=== PATIENT | female | born 1980 | race Caucasian/White ===

== ENCOUNTER 2025-03-21 20:16 | Observation (INO) ==
--- NOTE | 2025-03-21 20:34 | Emergency Department Note ---
Impression & Plan Lumbar disc herniation, Degenerative disc disease at L5-S1 level ED Provider Note CHIEF COMPLAINT: Injury, severe lower back pain HISTORY OF PRESENTING ILLNESS: The patient is a 44-year-old female who reports to the emergency department stating that 5 days ago she "popped something in her back". She was evaluated initially at [place] emergency department twice where she was told that she "blew a disc". She is now having worsening pain and is unable to see the specialist until Sunday, 4 days from now. Pain is worse with lying down and with moving from a seated to standing position. She notes that when this originally happened she had complete weakness and numbness in the left lower extremity which has mildly improved. She is sitting uncomfortably and has not been able to sleep for the past couple of days. She denies numbness and tingling of her groin, loss of bowel or bladder, urinary symptoms, abdominal pain, fever, chest pain, shortness of breath, as well as trauma or injury. REVIEW OF SYSTEMS: See HPI for pertinent positives and pertinent negatives. ALLERGIES: Prednisone, tramadol MEDICATIONS: See below PAST MEDICAL HISTORY: See below PHYSICAL EXAM: VITALS: Vitals are noted on the nurses note and reviewed by myself. Vital signs stable. GENERAL: 44-year-old female, sitting uncomfortably hunched over and leaned forward in a chair, in no acute distress, nondiaphoretic, well-developed well- nourished. SKIN: Capillary refill less than 2 seconds. HEENT: Normocephalic. PERRLA. EOMI. Nares patent. Mucous membranes moist. Neck is supple. HEART: Regular rate and rhythm without murmurs gallops or rubs. LUNGS: CTA BL without wheezes, rales or rhonchi. No retractions or accessory muscle use. ABDOMEN: Soft, nontender, without masses or organomegaly. No guarding or rebound tenderness. MUSCULOSKELETAL: Tenderness upon palpation to the left paraspinal muscles in the left buttock area. No tenderness upon palpation to the cervical, thoracic, and lumbar spinous process. No deformity or step-off. Left straight leg raise positive. 3/5 left lower extremity strength secondary to discomfort. No tremors, tics, or fasciculations. Patient moves through positions when asked but slowly. No pain on the right side. NEURO: Patient was alert and oriented. Normal sensation on exam. No focal neurological deficits. DIFFERENTIAL DIAGNOSIS: cauda equina syndrome, cord compression, disc herniation, muscle spasm, lumbar strain, epidural abscess, malignancy, transverse myelitis, urinary tract infection, colitis, diverticulitis, kidney stone, among others. ED COURSE AND MEDICAL DECISION MAKING: HISTORY FROM INDEPENDENT HISTORIAN: The patient herself. MEDICATIONS GIVEN: Oxycodone 5 mg PO, Tylenol 1000 mg PO, morphine 4 mg IV, Zofran 4 mg IV, Toradol 15 mg IV INTERPRETATION OF LABS: I interpreted the labs with full lab results as below in the lab section of this note. Pertinent lab results discussed in the MDM section below. INTERPRETATION OF IMAGING: Imaging studies were interpreted by myself and read by radiology as per the imaging section of this note. CT lumbar spine - Posterior disc herniation measuring 3 to 4 mm narrowing of the thecal sac to 8 mm. Mild degenerative disc disease at L5-S1 as described above. No acute fracture or subluxation. CONSULTATIONS: On-call [facility] - Presented the patient to the provider and discussed imaging results. They agreed to evaluating the patient for pain management. MDM SUMMARY: I evaluated the 45-year-old female who presents the emergency department due to low back pain radiating into the left leg. See HPI and physical exam above. Initially oxycodone and Tylenol were given. Patient's vitals are stable. She is sitting very uncomfortably in the chair. Leukocytosis WBC of 15.49 which may be secondary to pain. Hemodynamically stable. No electrolyte abnormality. No FRANK. All lab results reviewed with the patient. Additionally morphine and Zofran were given for symptom management. CT lumbar spine shows a posterior disc herniation measuring 3 to 4 mm as well as DDG at L5-S1. On reevaluation of the patient she confirms that she is feeling slightly better but she is still bent over and uncomfortable. She is able to ambulate but with extreme discomfort. I had a long discussion with her regarding continuing her steroid, muscle relaxer, and pain management until she is evaluated by the specialist on Sunday or needing additional pain management. She requests additional pain management. Toradol was given and a consultation was placed with the on-call [facility]. The patient was admitted to medicine in stable condition. She is agreeable and all questions answered. DIAGNOSIS: Lumbar disc herniation, degenerative disc disease at L5-S1 The chart was completed utilizing [employer] Speech voice recognition software. Grammatical errors, random word insertions, pronoun errors, and incomplete sentences are an occasional consequence of this system due to software limitations, ambient noise, and hardware issues. Any formal questions or concerns about the content, text, or information contained within the body of this dictation should be directly addressed to the provider for clarification. 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 Beliefs That Will Affect Care: None Current Living Situation: Family Other Information That Helps Us Care for You: No Feels Safe at Home: No Is there a partner from a previous relationship who is making you feel unsafe now?: No Any Concerns about Your Family Situation: No Would You Like to Speak to Someone About Your Situation: No Safety Concerns: Feels Safe At This Time Assistive Devices: None Allergies Allergies Allergy/AdvReac Type Severity Reaction Status Date / Time prednisone Allergy Severe FACE Verified 03/22/25 00:31 SWELLS/VOMITING/STOMACH BLEEDS tramadol AdvReac Intermediate VOMITING/CAUSED Verified 03/22/25 00:31 A MIGRAINE Home Meds Home Medications Medication Instructions Recorded Confirmed Primal Carney Suppliment 1 tab PO DAILY 03/22/25 03/22/25 acetaminophen 500 mg tablet 1,000 mg PO Q6H PRN Pain 03/22/25 03/22/25 (Tylenol Extra Strength) ergocalciferol (vitamin D2) 1,250 1,250 mcg PO WK 03/22/25 03/22/25 mcg (50,000 unit) capsule (Vitamin D2) methylprednisolone 4 mg tablets in 4 mg PO DIRECTED 09/14/25 09/14/25 a dose pack tizanidine 2 mg tablet 2 mg PO Q8H PRN MUSCLE SPASMS 03/22/25 03/22/25 Results & Data (ED) Vital Signs Vital Signs - 24 hr 03/22/25 01:00 03/22/25 01:00 Temperature 36.6 C Temperature Source Oral Pulse Rate [Left Finger] 80 Respiratory Rate 14 Respiratory Effort / Characteristics Non-Labored Spontaneous Respiratory Depth Normal Respiratory Pattern Regular Blood Pressure [Left Arm] 152/92 H Blood Pressure Mean [Left Arm] 112 Pulse Oximetry 95 Oxygen Delivery Method Room Air EWS Level of Consciousness - Last Result Spontaneously Alert EWS Temperature - Last Result 36.5 EWS Respiratory Rate - Last Result 18 EWS Oxygen Saturation - Last Result 98 EWS Score 0 EWS Clinical Risk Low Risk Laboratory Data 03/21/25 21:20 03/21/25 21:20 Lab Results 03/21/25 Range/Units 21:20 WBC 15.49 H (4.8-10.8) K/ul RBC 4.40 (4.20-5.40) M/uL Hgb 12.1 (12.0-16.0) g/dl Hct 36.5 L (37.0-47.0) % MCV 83.0 (80.0-100.0) fL MCH 27.5 (25.0-34.0) pg MCHC 33.2 (32.0-36.0) g/dL RDW Std Deviation 36.7 (36.4-46.3) fL RDW Coeff of David 12.0 (11.5-14.5) % Plt Count 392 (130-400) K/uL MPV 9.1 L (9.4-12.4) fL Immature Gran % (Auto) 0.5 % Neut % (Auto) 78.3 % Lymph % (Auto) 15.8 % Mccormick % (Auto) 4.8 % Eos % (Auto) 0.3 % Baso % (Auto) 0.3 % Neut # (Auto) 12.14 H (1.40-6.50) K/uL Lymph # (Auto) 2.44 (1.20-3.40) K/uL Mccormick # (Auto) 0.75 H (0.11-0.59) K/uL Eos # (Auto) 0.04 (0.00-0.50) K/uL Baso # (Auto) 0.05 (0.00-0.20) K/uL Immature Gran # (Auto) 0.07 (0.01-0.20) K/uL Sodium 136 (136-145) mmol/L Potassium 4.0 (3.5-5.1) mmol/L Chloride 104 (98-107) mmol/L Carbon Dioxide 25 (21-32) mmol/L Anion Gap 7 (3-11) BUN 14 (6-23) mg/dl Creatinine 0.71 (0.6-1.2) mg/dl Est Cr Clr Drug Dosing 137.1 ml/min eGFR 108.80 BUN/Creatinine Ratio 19.7 (10-20) Glucose 113 H (70-99(Fasting)) mg/dl Calcium 9.4 (8.6-10.3) mg/dl Total Bilirubin 0.2 (0.2-1.0) mg/dl AST 8 L (13-39) U/L ALT 8 (7-52) U/L Alkaline Phosphatase 62 (34-104) U/L Total Protein 8.1 (6.0-8.3) gm/dl Albumin 4.5 (3.4-5.0) gm/dl Globulin 3.6 (2.5-4.0) gm/dl Albumin/Globulin Ratio 1.3 (0.9-2) Administered Medications Discontinued Medications Acetaminophen (Acetaminophen 500 Mg Tab) 1,000 mg PO NOW STA Stop: 03/21/25 21:27 Last Admin: 03/21/25 21:35 Dose: 1,000 mg Documented By: JOSE DAVID Acetaminophen (Acetaminophen 500 Mg Tab) 1,000 mg PO Q8H TERRENCE Stop: 04/21/25 05:59 Last Admin: 03/22/25 05:20 Dose: 1,000 mg Documented By: [id number] Baclofen (Baclofen 10 Mg Tab) 10 mg PO ONE ONE Stop: 03/22/25 09:34 Last Admin: 03/22/25 09:53 Dose: 10 mg Documented By: ADB Dexamethasone (Dexamethasone Sod Inj 4 Mg/Ml Vial) 10 mg IV NOW STA Stop: 03/22/25 01:49 Last Admin: 03/22/25 02:37 Dose: 10 mg Documented By: LAF Diclofenac Sodium (Diclofenac Sod 1% Gel 100 Gm Tube) 2 gm EXT QID TERRENCE; Protocol Stop: 04/21/25 08:59 Last Admin: 03/22/25 09:08 Dose: 2 gm Documented By: MILADYS Lactated Ringer's (Lr) 1,000 mls @ 150 mls/hr IV .Q6H40M TERRENCE Stop: 03/22/25 11:30 Last Infusion: 03/22/25 09:55 Dose: Infused Documented By: Admin: 03/22/25 05:21 Dose: 150 mls/hr Documented By: [id number] Ketorolac Tromethamine (Ketorolac Tromethamine 15 Mg/Ml Vial) 15 mg IV NOW STA Stop: 03/22/25 00:47 Last Admin: 03/22/25 00:52 Dose: 15 mg Documented By: mercy Ketorolac Tromethamine (Ketorolac 30 Mg/Ml Vial) 30 mg IV NOW ONE Stop: 03/22/25 09:33 Last Admin: 03/22/25 09:51 Dose: 30 mg Documented By: MILADYS Morphine Sulfate (Morphine Sulfate 4 Mg/Ml 1 Ml Carp\\Vial) 4 mg IV NOW STA Stop: 03/21/25 22:34 Last Admin: 03/21/25 23:12 Dose: 4 mg Documented By: EPHRAIM Ondansetron HCl (Ondansetron Inj 2 Mg/Ml 2 Ml Vial) 4 mg IV NOW STA Stop: 03/21/25 22:34 Last Admin: 03/21/25 23:12 Dose: 4 mg Documented By: EPHRAIM Oxycodone HCl (Oxycodone Hcl Ir 5 Mg Tab (Immediate Release)) 5 mg PO NOW STA Stop: 03/21/25 21:27 Last Admin: 03/21/25 21:35 Dose: 5 mg Documented By: JOSE DAVID Pantoprazole Sodium (Pantoprazole 40 Mg Tab) 40 mg PO QAM TERRENCE Stop: 04/21/25 08:59 Last Admin: 03/22/25 09:09 Dose: 40 mg Documented By: MILADYS Tramadol HCl (Tramadol Hcl 50 Mg Tablet) 50 mg PO NOW STA Stop: 03/22/25 09:33 Last Admin: 03/22/25 09:52 Dose: Not Given Documented By: MILADYS Discharge Plan Visit Data Chief Complaint: Back Injury/Pain Stated Complaint: INJURY, INTENSE LOWER BACK PAIN ED Provider: Dax Moran ED Midlevel Provider: Keshia Orona Discharge Problem: Lumbar disc herniation, Degenerative disc disease at L5-S1 level Patient Disposition: Admitted As Inpatient Condition: Good Discharge Instructions Interventions: ED Discharge Assessment Last Done: 03/22/25 04:36
[2025-03-21] MEDS: ACETAMINOPHEN 500 MG TAB PO STA (21:35)
[2025-03-21 21:40] LABS: Hematocrit (blood only) 36.5 % (37.0-47.0); Hemoglobin 12.1 g/dl (12.0-16.0); Immature Granulocytes # (auto) 0.07 K/uL (0.01-0.20); Immature Granulocytes % (auto) 0.5 %; Mean Corpuscular Hemoglobin 27.5 pg (25.0-34.0); Mean Corpuscular Volume 83.0 fL (80.0-100.0); Platelet Count 392 K/uL (130-400); RDW Standard Deviation 36.7 fL (36.4-46.3); Red Blood Count 4.40 M/uL (4.20-5.40); White Blood Count 15.49 K/ul (4.8-10.8)
[2025-03-21 21:58] LABS: Alanine Aminotransferase 8.0 U/L (7-52); Albumin Globulin Ratio 1.3 (0.9-2); Alkaline Phosphatase 62.0 U/L (34-104); Anion Gap 7.0 (3-11); Bilirubin,Total 0.2 mg/dl (0.2-1.0); Blood Urea Nitrogen 14.0 mg/dl (6-23); Calcium 9.4 mg/dl (8.6-10.3); Carbon Dioxide 25.0 mmol/L (21-32); Chloride 104.0 mmol/L (98-107); Creatinine Clr Calc Pharmacy 137.1 ml/min; Globulin 3.6 gm/dl (2.5-4.0); Glucose 113.0 mg/dl (70-99(Fasting)); Potassium 4.0 mmol/L (3.5-5.1); Sodium 136.0 mmol/L (136-145); Total Protein 8.1 gm/dl (6.0-8.3)
--- NOTE | 2025-03-21 22:27 | CT Scan Report ---
Exam(s): CT L SPINE EXAM: CT Lumbar Spine Without Intravenous Contrast CLINICAL HISTORY: Reason for exam: back pain, left leg sciatica. TECHNIQUE: Axial computed tomography images of the lumbar spine without intravenous contrast. CTDI is 39 mGy and DLP is 1129 mGy-cm. Automated exposure control was utilized for the study. A dose lowering technique was utilized adhering to the principles of ALARA. COMPARISON: No relevant prior studies available. FINDINGS: Vertebrae: Unremarkable. No acute fracture. Soft tissues: Unremarkable. DISCS/SPINAL CANAL/NEURAL FORAMINA: L1-L2: Unremarkable. No significant disc disease. No stenosis. L2-L3: Unremarkable. No significant disc disease. No stenosis. L3-L4: Unremarkable. No significant disc disease. No stenosis. L4-L5: Unremarkable. No significant disc disease. No stenosis. L5-S1: Mild degenerative disc space narrowing and anterior osteophyte formation. There is posterior disc herniation measuring 3-4 mm narrowing of the thecal sac to 8 mm. The neural foramina are widely patent bilaterally. IMPRESSION: Mild degenerative disc disease at L5-S1 as described above. No acute fracture or subluxation is seen. Electronically signed by: Dax Lubin MD 03/21/25 22:26 PM
[2025-03-21] MEDS: MoRPHine SULFATE 4 MG/ML 1 ML CARP\\VIAL IV STA (23:12)
[2025-03-21] MEDS: ONDANSETRON INJ 2 MG/ML 2 ML VIAL IV STA (23:12)
[2025-03-22] MEDS: KETOROLAC TROMETHAMINE 15 MG/ML VIAL IV STA (00:52)
--- NOTE | 2025-03-22 01:38 | History & Physical Report ---
Date of Service March 22, 2025 Assessment & Plan (1) Lower back pain: (2) Myofascial low back pain: (3) Lumbar disc herniation: (4) Degenerative disc disease at L5-S1 level: (5) Leukocytosis: Plan Patient is a 45-year-old female with no significant medical history who was admitted for pain management. #Lower back pain #Myofascial pain #Posterior disc herniation and mild degenerative changes at the level of L5-S1 Possible that because of lower back pain is multifactorial, and may include myofascial pain since it was reproducible on palpation and improves with spinal extension, plus or minus some contribution from possible radiculopathy consequent of noted posterior disc herniation Suspect that noted elevations in blood pressure may also be related to pain (no history of hypertension) Will admit to MedSurg for pain management Pain control with scheduled Tylenol, Toradol 15 mg IV for breakthrough pain, heat application, and Voltaren gel Patient scheduled to see mobility specialist on Sunday this week; suspect may need to continue with anti-inflammatory medication and 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 labs Dispo: Admit to Med/Surg Fluids: LR @ 150 ml/hr x1 bag Diet: Regular VTE ppx: low risk; ambulation GI ppx: Protonix Code Status: FULL History of Present Illness Chief Complaint: Back pain Primary Care Provider: Wilian Simms DO Patient is a 45-year-old female with no significant medical history who came to the emergency department due to severe lower back pain. 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 Since then, the tingling and numbness improved, and so patient went to work, but after pain persisted for 8-9 hours, patient went to hospital in [place] for evaluation. There, she had an XR done which showed no fractures or acute changes, and was then discharged with oxycodone for pain control. No steroids given at this time due to concern of hx of allergic reaction to Prednisone where she developed facial swelling and "bleeding into her stomach". At home, she tried using the oxycodone, but was still not able to achieve pain control, therefore she returned to [facility]. There, they repeated l-spine XR and again was told there were no new changes and was discharged with Medrol dose pack and the remaining prescription for oxycodone from her previous visit. After this, she set up an appointment with a mobility specialist scheduled for Sunday of this week. Since she felt the pain was worse and has not been able to sleep due to pain being exacerbated with laying flat or sitting for a long time, she came to this ED. Other exacerbating factors patient can recall is bending over or sitting up from a laying position. No alleviating factors. Does occasionally feel the shooting sensation down her leg when she bends over, but this is not always. Pain is localized in lower back. Denies LE weakness, urinary incontinence, saddle anesthesia, sensorial changes, or other associated sxs. No hx of preceding trauma, no surgeries, no falls, no fevers. ED Course: Given Tylenol 1 gm x1, Toradol 15 mg x1, Morphine 4 mg x1, Oxycodone 5 mg x1, and Zofran 4 mg x1, Decadron 10 mg IV x1 Labs/Imaging: CBC with slight leukocytosis of 15.5 with neutrophilic predominance, hemoglobin 12.1, platelets of 392. CMP without significant electrolyte abnormalities, creatinine of 0.71, blood sugar 113. LFTs unremarkable. L-spine CT showing degenerative changes at the level of L5-S1 that is mild with narrowing of the thecal sac to 8 mm due to posterior disc herniation at this level. Medical History: [Reviewed] Medications: [Reviewed] Surgical History: [Reviewed] Family history: [Reviewed] Allergies: [Reviewed] Social History: [Reviewed] Code Status: FULL Allergies Allergy/AdvReac Type Severity Reaction Status Date / Time prednisone Allergy Severe FACE Verified 03/22/25 00:31 SWELLS/VOMITING/STOMACH BLEEDS tramadol AdvReac Intermediate VOMITING/CAUSED Verified 03/22/25 00:31 A MIGRAINE Home Medications Medication Instructions Recorded Confirmed Type Primal Carney Suppliment 1 tab PO DAILY 03/22/25 03/22/25 History acetaminophen 500 mg tablet 1,000 mg PO Q6H PRN Pain 03/22/25 03/22/25 History (Tylenol Extra Strength) ergocalciferol (vitamin D2) 1,250 1,250 mcg PO WK 03/22/25 03/22/25 History mcg (50,000 unit) capsule (Vitamin D2) methylprednisolone 4 mg tablets in 4 mg PO DIRECTED 03/22/25 03/22/25 History a dose pack tizanidine 2 mg tablet 2 mg PO Q8H PRN MUSCLE SPASMS 03/22/25 03/22/25 History Past Med/Surg History Problem List (Updated 03/22/25 @ 12:34 by Vinay Escalante MD) Leukocytosis Degenerative disc disease at L5-S1 level Lumbar disc herniation Myofascial low back pain Lower back pain Left sided abdominal pain (Acute) Nausea vomiting and diarrhea (Acute) Nausea, vomiting, and diarrhea (Acute) Social History Smoking Status: Former smoker Smoking End Date: 2011; Second Hand Exposure: No; Do You Dip or Chew Tobacco: No; Tobacco Cessation Education Requested by Patient: No Hx Alcohol Use: No Hx Substance Use: No Preferred Language: Vincentian Communication Ability: Effective Replenishment Specialist Required: No Beliefs That Will Affect Care: None Current Living Situation: Family Other Information That Helps Us Care for You: No Feels Safe at Home: No Is there a partner from a previous relationship who is making you feel unsafe now?: No Any Concerns about Your Family Situation: No Would You Like to Speak to Someone About Your Situation: No Safety Concerns: Feels Safe At This Time Assistive Devices: None Review of Systems Review of Systems: As per HPI Physical Exam Physical Exam: GENERAL: Awake and oriented in all spheres, afebrile, nontoxic, uncomfortable while sitting, no acute distress HEAD: Atraumatic, normocephalic EYES: PERRL, EOM intact THROAT: Limited to visual inspection CHEST: Symmetric chest expansions with respirations CARDIO: Regular rate and rhythm, no gross murmurs or gallops appreciated PULMONARY: Clear to auscultation bilaterally, normal respiratory effort, no respiratory distress, breathing comfortably on room air GI: Soft, nondistended, nontender MSK: No swelling or calf tenderness in bilateral extremities; patellar reflexes preserved b/l, tenderness with palpation of bilateral paraspinal muscles in lumbar region with tenderness being more marked on the left side but both reproducible of patient's pain, pain is relieved with spine extension and worsened with flexion, positive seated straight leg bilaterally, normal strength in bilateral lower extremities, no sensory changes, no saddle anesthesia, no obvious deformity noted Results & Data Results & Data Vital Signs (Past 12 Hours) Vital Signs Temp Pulse Pulse Resp BP BP Pulse Ox 03/21/25 23:00 72 18 157/89 H 97 03/21/25 20:17 36.5 C 82 16 151/89 H 98 O2 Del Method 03/21/25 23:00 Room Air 03/21/25 20:17 Room Air Supervising Physician Co-Signing Physician Notes Attending addendum: I have physically seen this patient, have supervised the medical residents activities, and agree with the H&P unless as otherwise noted. Assessment and Plan: The patient is a 45-year-old female with past medical history including myofascial low back pain, and muscle spasm, who presents to the emergency department with complaint of worsening low back pain. In the emergency department she underwent a CT scan of her lumbar spine which showed L5-S1 mild degenerative disc disease, with a reported 3-4 mm posterior disc herniation causing narrowing of the thecal sac to 8 mm. The patient received from the ED oxycodone 5 mg p.o., Tylenol 1 g p.o., and morphine 4 mg IV. She was then referred for evaluation for admission Low back pain/myofascial pain/posterior disc herniation and L5-S1 mild degenerative disc disease- Patient was given dexamethasone 10 mg IV. Tylenol 1 g IV every 8 hours. Mild pain or fever Toradol 15 mg IV every 6 hours. Breakthrough pain K-pad Voltaren gel Patient is scheduled to see a mobility specialist in 3 days, Sunday this week. But primarily concentrated on anti-inflammatory medications in the interim She feels she has too much pain at this point for physical therapy Continue antispasmodics tizanidine 2 mg p.o. every 8 hours as needed Patient on LR at 150 mL/h x 1 L Leukocytosis- Likely secondary to steroid use No other treatment needed at this point Resident Activity Tracking Resident Involvement: Resident Care Provided Care Provided: Adult [facility]
[2025-03-22] MEDS: DEXAMETHASONE SOD INJ 4 MG/ML VIAL IV STA (02:37)
[2025-03-22] MEDS ORDERED: MELATONIN 3 MG TAB PO PRN (04:51)
[2025-03-22] MEDS ORDERED: ONDANSETRON INJ 2 MG/ML 2 ML VIAL IV PRN (04:51)
[2025-03-22] MEDS ORDERED: POLYETHYLENE (MIRALAX) 17 GM PACK PO PRN (04:51)
[2025-03-22] MEDS ORDERED: diphenhydrAMINE 50 MG/ML VIAL IV PRN (04:51)
[2025-03-22] MEDS ORDERED: KETOROLAC TROMETHAMINE 15 MG/ML VIAL IV PRN (04:51)
[2025-03-22] MEDS: ACETAMINOPHEN 500 MG TAB PO SCH (05:20)
[2025-03-22] MEDS: LACTATED RINGER'S 1,000 ML IV SCH (05:21)
[2025-03-22 07:30] VITALS: RESP 16; TEMP 98.2; O2SAT 98
[2025-03-22] MEDS: DICLOFENAC SOD 1% GEL 100 GM TUBE EXT SCH (09:08)
[2025-03-22] MEDS: KETOROLAC 30 MG/ML VIAL IV ONE (09:51)
[2025-03-22] MEDS: BACLOFEN 10 MG TAB PO ONE (09:53)
--- NOTE | 2025-03-22 12:33 | Discharge Summary ---
Discharge Summary Date of Service March 22, 2025 Principal Dx & Hospital Course #1 = Principal Diagnosis Admission HPI Per Admitting Provider Patient is a 45-year-old female with no significant medical history who came to the emergency department due to severe lower back pain. 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 Since then, the tingling and numbness improved, and so patient went to work, but after pain persisted for 8-9 hours, patient went to hospital in [place] for evaluation. There, she had an XR done which showed no fractures or acute changes, and was then discharged with oxycodone for pain control. No steroids given at this time due to concern of hx of allergic reaction to Prednisone where she developed facial swelling and "bleeding into her stomach". At home, she tried using the oxycodone, but was still not able to achieve pain control, therefore she returned to [facility]. There, they repeated l-spine XR and again was told there were no new changes and was discharged with Medrol dose pack and the remaining prescription for oxycodone from her previous visit. After this, she set up an appointment with a campaign management specialist scheduled for Sunday of this week. Since she felt the pain was worse and has not been able to sleep due to pain being exacerbated with laying flat or sitting for a long time, she came to this ED. Other exacerbating factors patient can recall is bending over or sitting up from a laying position. No alleviating factors. Does occasionally feel the shooting sensation down her leg when she bends over, but this is not always. Pain is localized in lower back. Denies LE weakness, urinary incontinence, saddle anesthesia, sensorial changes, or other associated sxs. No hx of preceding trauma, no surgeries, no falls, no fevers. ED Course: Given Tylenol 1 gm x1, Toradol 15 mg x1, Morphine 4 mg x1, Oxycodone 5 mg x1, and Zofran 4 mg x1, Decadron 10 mg IV x1 Labs/Imaging: CBC with slight leukocytosis of 15.5 with neutrophilic predominance, hemoglobin 12.1, platelets of 392. CMP without significant electrolyte abnormalities, creatinine of 0.71, blood sugar 113. LFTs unremarkable. L-spine CT showing degenerative changes at the level of L5-S1 that is mild with narrowing of the thecal sac to 8 mm due to posterior disc herniation at this level. Medical History: [Reviewed] Medications: [Reviewed] Surgical History: [Reviewed] Family history: [Reviewed] Allergies: [Reviewed] Social History: [Reviewed] Code Status: FULL Discharge Plan Discharge Items Reason For Visit: BACK PAIN Follow-up/Referrals: Wilian Simms DO [Primary Care Provider] - Medications and DC Order Prescriptions: No Action tizanidine 2 mg tablet 2 mg PO Q8H PRN (Reason: MUSCLE SPASMS) acetaminophen [Tylenol Extra Strength] 500 mg Tablet 1,000 mg PO Q6H PRN (Reason: Pain) ergocalciferol (vitamin D2) [Vitamin D2] 1,250 mcg (50,000 unit) Capsule 1,250 mcg PO WK Rx Instructions: WEDNESDAYS methylprednisolone 4 mg tablets,dose pack 4 mg PO DIRECTED Rx Instructions: STARTED 03/20/25 FOR 6 DAYS Primal Carney Suppliment 1 tab PO DAILY Admission Data Admit Date/Time: 03/22/25 01:36 Attending Provider: Vinay Escalante Admit Provider: Shilpi Ramirez Primary Care Provider: Wilian Simms Hospital Stay Data Diagnostic Imagining Performed 03/21/25 21:14 CT lumbar spine wo con Stat Coding
[2025-03-22 12:43] VITALS: BP 155/79; PULSE 71
--- NOTE | 2025-03-22 19:58 | Billing Data ---
Date of Service March 22, 2025 Coding Level of Care Code 48843 INT INP/OBS CARE
== END 2025-03-22 12:42 | disposition left against medical advice (07) ==
LOC: 3W 20:16 → ED 20:16 → SUATTDRO 03-22 01:36 → 3W 03-22 04:36